=== PATIENT | female | born 1965 | race Caucasian/White ===

== ENCOUNTER → 2018-10-02 | Outpatient (CLI) | payer BC ==
[2018-10-02 15:43] LABS: Appearance,Urine Clear (Clear); Bilirubin,Urine Negative (Negative); Blood,Urine Negative (Negative); Color,Urine Yellow; Glucose,Urine (UA) Negative (Negative); Ketones,Urine Negative (Negative); Leukocyte Esterase,Urine Negative (Negative); Nitrite,Urine Negative (Negative); PH, Urine 6.5 (5.0-8.0); Protein,Urine Negative (Negative); Specific Gravity,Urine 1.019 (1.001-1.035); Urobilinogen,Urine <2.0 mg/dL (<2.0)
[2018-10-02 15:44] LABS: Basophils % (A) 0 %; Eosinophils # (A) 0.1 k/uL (0-0.7); Eosinophils % (A) 1 %; HCT 45.3 % (34.0-46.0); HGB 14.4 gm/dL (11.4-16.0); Lymphocytes # (A) 1.3 k/uL (1.0-4.8); Lymphocytes % (A) 19 %; MCH 31.7 pg (25.0-35.0); MCHC 31.7 g/dL (31.0-37.0); MCV 99.8 fL (80.0-100.0); Mean Platelet Volume 7.8; Monocytes # (A) 0.3 k/uL (0-1.0); Monocytes % (A) 5 %; Neutrophils # (A) 5.1 k/uL (1.3-7.7); Neutrophils % (A) 74 %; Platelet Count 197 k/uL (150-450); RBC 4.54 m/uL (3.80-5.40); RDW 12.7 % (11.5-15.5)
[2018-10-02 15:51] LABS: Partial Thromboplastin Time 23.1 sec (22.0-30.0); Prothrombin Time 10.4 sec (9.0-12.0)
--- NOTE | 2018-10-02 17:36 | XR ---
EXAMINATION TYPE: XR chest 2V DATE OF EXAM: 10/02/2018 COMPARISON: NONE TECHNIQUE: PA and lateral views submitted. HISTORY: Presurgical FINDINGS: The lungs are clear and there is no pneumothorax, pleural effusion, or focal pneumonia. Degenerativ e change of the spine noted. Hyperinflation suggests COPD or asthma, correlate clinically. IMPRESSION: 1. No acute process.
[2018-10-05 09:40] LABS: Anion Gap 10 mmol/L; Blood Urea Nitrogen 19 mg/dL (7-17); Carbon Dioxide 26 mmol/L (22-30); Chloride 110 mmol/L (98-107); Glucose 98 mg/dL (74-99); Potassium 4.3 mmol/L (3.5-5.1); Sodium 146 mmol/L (137-145)
[2018-10-05 09:41] LABS: Calcium 9.7 mg/dL (8.4-10.2)
== END | disposition home or self-care (01) ==
LOC: LABPAT 14:56
PROVIDERS: ATTEND Orthopaedic Surgery Orthopaedic Surgery of the Spine
DX: Z01.818 Encounter for other preprocedural examination (principal); S32.049A Unspecified fracture of fourth lumbar vertebra, initial encounter for closed fracture
CPT/HCPCS: 36415; 71046; 80048; 81003; 85025; 85610; 85730; 93005

== ENCOUNTER 2018-10-05 11:58 | Day surgery (SDC) | payer BC ==
[2018-10-05 12:44] VITALS: BMI 22.8
[2018-10-05] MEDS ORDERED: LACTATED RINGERS 1,000 ML IV ONE ×2 (12:49→15:56)
[2018-10-05] MEDS ORDERED: SODIUM CHLORIDE 0.9% IRRIGATIO 1,000 ML IRRIGATION ONE (13:15)
[2018-10-05] MEDS ORDERED: ceFAZolin IN SWFI 2 GM/20 ML SYRINGE IVP ONE (13:15)
[2018-10-05] MEDS ORDERED: MIDAZOLAM 2 MG/2 ML VIAL IV ONE (13:48)
[2018-10-05] MEDS ORDERED: SUCCINYLCHOLINE CHLORIDE 100 MG/5 ML SYR IV ONE (15:15)
[2018-10-05] MEDS ORDERED: PROPOFOL 10 MG/ML 20 ML VIAL IV ONE (15:15)
[2018-10-05] MEDS ORDERED: MIDAZOLAM 2 MG/2 ML VIAL ONE (15:15)
[2018-10-05] MEDS ORDERED: KETOROLAC 30 MG/ML 1 ML VIAL ONE (15:15)
[2018-10-05] MEDS ORDERED: fentaNYL (PF) 50 MCG/ML 2 ML AMP ONE (15:15)
[2018-10-05] MEDS ORDERED: LIDOCAINE 1% INJ 10MG/ML (20 ML MDV) ONE (15:15)
[2018-10-05] MEDS ORDERED: ePHEDrine SULFATE/0.9% NACL/PF 50 MG/5 ML SYRINGE IV ONE (15:15)
[2018-10-05] MEDS ORDERED: ROPIVACAINE 5 MG/ML 30 ML VIAL MISCELLANE ONE ×2 (15:40→15:49)
[2018-10-05] MEDS ORDERED: IOPAMIDOL M200 10 ML VIAL MISCELLANE ONE (15:51)
[2018-10-05] MEDS ORDERED: KETOROLAC 30 MG/ML 1 ML VIAL IVP PRN (16:19)
[2018-10-05] MEDS ORDERED: ONDANSETRON 4 MG/2 ML VIAL IVP PRN (16:19)
[2018-10-05] MEDS ORDERED: HYDROmorphone 0.5 MG/0.5 ML SYRINGE IVP PRN (16:19)
[2018-10-05] MEDS ORDERED: IBUPROFEN 600 MG TAB PO PRN (16:19)
[2018-10-05] MEDS ORDERED: HYDROcodone/APAP 5-325MG 1 EACH TAB PO PRN (16:19)
[2018-10-05] MEDS ORDERED: BENZOCAINE/MENTHOL LOZENG 1 EACH LOZENGE MUCOUS MEM PRN (16:19)
[2018-10-05] MEDS ORDERED: traMADol 50 MG TAB PO PRN (16:20)
--- NOTE | 2018-10-05 16:26 | P.OP ---
Date of Procedure: 10/05/18 Preoperative Diagnosis: Acute traumatic L4 vertebral compression fracture, low back pain Postoperative Diagnosis: Same Anesthesia: GETA Pathology: other (L4 vertebral body biopsy sent to pathology) Condition: stable Disposition: PACU Description of Procedure: BRIEF OPERATIVE NOTE Preoperative Diagnosis: Vertebral compression fracture of L4, acute traumatic Postoperative Diagnosis: Same Procedure: Kyphoplasty of L4 Vertebral body biopsy of L4 Use of biplanar fluoroscopic guidance Surgeon: Dr. Marin Process Control Technician: Chente Jaimes is present throughout the entire the case persistence during positioning, dissection, exposure, visualization, and all crucial elements of the case as well as closure. Anesthesia: General anesthesia Estimated blood loss: Less than 10 mL Specimen: Vertebral body biopsy of L4 sent to pathology in formalin Complications: None apparent Components implanted: Bone cement approximate 6 to have cc Disposition: To recovery room in good stable condition. OPERATIVE INDICATIONS The patient has been having issues in their back ever since sustaining an injury. She fell in the parking lot when leaving work onto her backside and had sudden acute pain at her lower back. She is having acute pain which is unrelenting for her and causing her great difficulty with any sort of mobilization and activity. She was able unable to work due to her pain and her injury. The patient has been through conservative treatment. She is not able to tolerate bracing for her back and was not doing well with medications. They attempted conservative care with bracing however they're not having any benefit despite brace use. They continue to have significant pain and debility due to their fracture at L4. We discussed various treatment options including surgery , and the patient wishes to proceed with surgery We discussed the risk, patient' s alternatives and benefits of surgery including but not limited to, risk of bleeding risk of infection, risk of need for further surgery, risk of decreased , loss of motion, loss of function, cement extravasation, nerve damage, paralysis, heart attack, blindness and . OPERATIVE SUMMARY After discussing all the risks, patient alternatives and benefits at length, the patient elected to proceed with surgical intervention, signed informed consent, and presented for their procedure. The patient was seen and examined in the preoperative holding area and the surgical site was marked. The patient was given antibiotics and brought to the operating room. The patient was sedated and intubated by anesthesia in standard fashion. The patient was positioned on to the operating room table in a prone position on the appropriate well-padded and well molded bilateral chest rolls. We were careful to pad any bony prominences and pressure points. We were careful to maintain the patient's cervical spine and good neutral alignment and position throughout. We used 2 C-arm machines to establish biplanar fluoroscopic guidance in AP and lateral positions. We were able to localize the fractures appropriately at L4. The patient was prepped and draped in a normal standard fashion. An appropriate timeout and keystone protocol performed. We were able to proceed with the surgery. The local wound area was infiltrated with local anesthetic. An incision was made over the lateral aspect of the pedicle over the appropriate levels with a small 2 mm stab incision on the left of L4. Intraoperative fluoroscopy was taken which showed a marker at the appropriate level at L4. With the appropriate level positively confirmed, I was able to position a sharp trocar over the lateral aspect of the pedicle. As able to advance the trocar into the pedicle and into the posterior aspect of vertebral body being careful to avoid penetration cephalad caudad or medially. The trocar was placed appropriately into the posterior aspect of vertebral body at the appropriate levels. This was confirmed with C-arm guidance. With the trocar intact I was then able to take a bone biopsy with a biopsy punch. The biopsy specimen was passed off to be sent to pathology in formalin. I was then able to place the kyphoplasty balloon within the vertebral body. The position was checked on C-arm. I was able to inflate the balloon under low pressure and visualization with C-arm. The balloon was well enclosed within the vertebral body. There is no leakage of any of the contrast within the balloon. The cement was prepared. With the cement at appropriate working condition the balloons were deflated and removed. I was able to place bony cement with trocar with the cement delivery device under low pressure. It had good fill within the vertebral body. There is no evidence of any extravasation of the cement posteriorly toward the canal. The cement was well contained at the appropriate levels of L4. Some small amount of cement went through the fracture site into the disc at L3 4 without issue. The cement was allowed to cure appropriately. The trochars removed and final images were taken on C-arm. This showed the cement at the appropriate level of L4 Johnnie 6 and half cc of cement. We were able to proceed with closure. The wound was cleaned and dried and dressed with the appropriate dressing. The drapes were broken down. The patient was gently rolled back onto their hospital bed being careful to maintain their cervical spine and good neutral alignment and position. They were woken up by anesthesia, extubated, and brought to the recovery room in good stable condition. The patient will be admitted to the hospital for observation if necessary versus going home when stable from postanesthesia care unit and for appropriate postoperative care, medical management and monitoring. We will continue to follow them closely about the postoperative course.
[2018-10-05] MEDS ORDERED: SODIUM CHLORIDE 0.9% 1,000 ML IV SCH (16:30)
[2018-10-05 16:36] VITALS: TEMP 97.8
[2018-10-05] MEDS ORDERED: ONDANSETRON 4 MG/2 ML VIAL IVP ONE (16:42)
[2018-10-05] MEDS ORDERED: HYDROmorphone 1 MG/ML 1 ML SYRINGE IVP ONE (16:44)
[2018-10-05 17:05] VITALS: RESP 18
[2018-10-05 17:14] VITALS: BP 153/87; PULSE 74
[2018-10-05] MEDS ORDERED: CLINDAMYCIN 900 MG in DEXTROSE 5% IN WATER 50 ML IVPB SCH ×2 (18:00)
--- NOTE | 2018-10-05 22:24 | FL ---
EXAMINATION TYPE: FL guidance operating room, XR lumbar spine 1V DATE OF EXAM: 10/05/2018 CLINICAL HISTORY: Compression fracture. TECHNIQUE: Fluoroscopy. Intraoperative single view lumbar spine. COMPARISON: None. FINDINGS: Fluoroscopic guidance was provided during kyphoplasty procedure performed by Dr. Marin. A total of 60 seconds of fluoroscopic time was utilized during the procedure and 3 spot fluoroscopic i mages are acquired. Images acquired show placement of device and cement material injection L4 level extending into adjace nt L3-L4 disc space. IMPRESSION: As Above.
[2018-10-06] MEDS ORDERED: LISINOPRIL 20 MG TAB PO SCH (09:00)
[2018-10-06] MEDS ORDERED: FLUTICASONE 50MCG/SPRAY NASAL 16GM EA NOSTRIL SCH (09:00)
[2018-10-06] MEDS ORDERED: METOPROLOL SUCCINATE (ER) 50 MG TAB.ER.24H PO SCH (09:00)
== END 2018-10-05 18:03 | disposition home or self-care (01) ==
LOC: OR 11:58
PROVIDERS: ATTEND Orthopaedic Surgery Orthopaedic Surgery of the Spine
DX: S32.040A Wedge compression fracture of fourth lumbar vertebra, initial encounter for closed fracture (principal); W19.XXXA Unspecified fall, initial encounter; Y92.481 Parking lot as the place of occurrence of the external cause; Z88.6 Allergy status to analgesic agent; Z91.041 Radiographic dye allergy status; I10 Essential (primary) hypertension; Z79.899 Other long term (current) drug therapy; Z88.1 Allergy status to other antibiotic agents
CPT/HCPCS: 88307; 88311; 72020; 22514; C1713; J2250; J2405; J2001; J3010; J1885; J1170; J2795; J0330; J2704; J0690; Q9966

== ENCOUNTER 2022-06-05 20:01 | Emergency (ER) | payer BC, MEDICAID, OTHER ==
[2022-06-05 20:06] VITALS: BP 142/92; PULSE 78; RESP 18; TEMP 98.1
--- NOTE | 2022-06-05 21:01 | XR ---
EXAMINATION TYPE: XR ribs bilat w pa chest xray DATE OF EXAM: 06/05/2022 COMPARISON: NONE HISTORY: Rib pain TECHNIQUE: 9 views FINDINGS: Heart is normal. Lungs are clear of infiltrate. No evidence of rib fracture. No pleural eff usion or pneumothorax. The shoulder joints appear intact IMPRESSION: Normal chest. Normal bilateral rib exam.
[2022-06-05] MEDS ORDERED: ORPHENADRINE 30 MG/ML 2 ML VIAL IM STA (21:37)
[2022-06-05] MEDS ORDERED: KETOROLAC 15 MG/ML 1 ML VIAL IM STA (21:37)
[2022-06-05] MEDS ORDERED: DEXAMETHASONE SOD PHOSPHATE 10 MG/ML 1 ML VIAL IM STA (21:37)
--- NOTE | 2022-06-05 21:52 | ED ---
General Adult HPI - General Chief complaint: Back Pain/Injury Stated complaint: Back pain Time Seen by Provider: 06/05/22 20:51 Source: patient Mode of arrival: ambulatory Limitations: no limitations - History of Present Illness Initial comments: Patient is a 57-year-old female presenting with chief complaint of thoracic back pain. Pain is been ongoing since patient's recent chiropractor visit, states that he was pressing down between her shoulder blades and she felt instant pain wraparound the chest. Patient states she returned and saw her regular chiropractor, they said that she "had a rib out of place" and adjusted her, patient was continuing to experience pain. Patient is admitting to tenderness and pain with range of motion to the right side of the chest as well as to the lateral portion of the chest and near the scapula. Patient has been taking Motrin with no relief. She denies any numbness, tingling, weakness, difficulty breathing, palpitations. - Related Data Home Medications Medication Instructions Recorded Confirmed Fluticasone Nasal [place] [Flonase 1 spray EA NOSTRIL DAILY 10/05/18 10/05/18 Nasal [place]] Metoprolol Succinate [Toprol XL] 1 tab PO DAILY 10/05/18 10/05/18 lisinopriL 20 mg PO DAILY 10/05/18 10/05/18 Previous Rx's Medication Instructions Recorded traMADol HCL [Ultram] 50 mg PO Q4HR PRN 3 Days #18 tab 10/05/18 Cyclobenzaprine [Flexeril] 10 mg PO TID PRN #20 tab 06/05/22 methylPREDNISolone Dose Pack 4 mg PO DIRECTED #1 packet 06/05/22 [Medrol Dose Pack] Allergies Allergy/AdvReac Type Severity Reaction Status Date / Time aspirin Allergy Rash/Hives Verified 06/05/22 20:06 Penicillins Allergy Rash/Hives Verified 06/05/22 20:06 MRI CONTRAST Allergy Rash/Hives Uncoded 06/05/22 20:06 IVP DYE AdvReac Itching Uncoded 06/05/22 20:06 Review of Systems ROS Statement: Those systems with pertinent positive or pertinent negative responses have been documented in the HPI. ROS Other: All systems not noted in ROS Statement are negative. Past Medical History Past Medical History: Hypertension History of Any Multi-Drug Resistant Organisms: None Reported Past Surgical History: Tonsillectomy, Tubal Ligation Past Anesthesia/Blood Transfusion Reactions: No Reported Reaction Past Psychological History: No Psychological Hx Reported Smoking Status: Never smoker Past Alcohol Use History: None Reported Past Drug Use History: None Reported General Exam Limitations: no limitations General appearance: alert, in no apparent distress Head exam: Present: atraumatic, normocephalic, normal inspection Eye exam: Present: normal appearance, PERRL, EOMI. Absent: scleral icterus, conjunctival injection, periorbital swelling Neck exam: Present: normal inspection Respiratory exam: Present: chest wall tenderness Back exam: Present: normal inspection, paraspinal tenderness. Absent: vertebral tenderness Neurological exam: Present: alert, oriented X3, CN II-XII intact Psychiatric exam: Present: normal affect, normal mood Skin exam: Present: warm, dry, intact, normal color. Absent: rash Course Vital Signs 06/05/22 20:04 Temperature 98.1 F Pulse Rate 78 Respiratory 18 Rate Blood Pressure 142/92 O2 Sat by Pulse 97 Oximetry Medical Decision Making - Medical Decision Making Patient is a 57-year-old female presenting with chief complaint of rib pain. Pain is been ongoing for several days, started after a chiropractor visit. On examination there is tenderness to palpation. X-ray shows no acute process. Patient is responsive to pain medication. Patient is discharged with muscle relaxers and steroid. Follow-up with PCP. Report back to ER with any new or worsening symptoms. Discussed return parameters and answered all questions. Patient conveyed verbal understanding and agreed to the plan. I discussed this case in detail with my attending Dr. Simms Disposition Clinical Impression: Mechanical back pain, Thoracic back pain Disposition: HOME SELF-CARE Condition: Good Instructions (If sedation given, give patient instructions): Back Pain (ED) Additional Instructions: Follow-up with PCP. Report back to ER with any new or worsening symptoms. Take medication as prescribed. Do not take cyclobenzaprine and prior to driving or operating heavy machinery as it may cause drowsiness. Prescriptions: Cyclobenzaprine [Flexeril] 10 mg PO TID PRN #20 tab PRN Reason: Spasms methylPREDNISolone Dose Pack [Medrol Dose Pack] 4 mg PO DIRECTED #1 packet Is patient prescribed a controlled substance at d/c from ED?: No Referrals: Namita Pemberton FNPBC [Primary Care Provider] - 1-2 days Time of Disposition: 22:30
[2022-06-05] MEDS ORDERED: HYDROcodone/APAP 7.5-325MG 1 EACH TAB PO ONE (22:28)
[2022-06-05] MEDS ORDERED: ACET/COD 300 MG/30 MG STARTER PACK 6 TAB BTL PO STA (22:30)
== END 2022-06-05 22:58 | disposition home or self-care (01) ==
LOC: EC 20:01
DX: M54.6 Pain in thoracic spine (principal); I10 Essential (primary) hypertension; Z88.6 Allergy status to analgesic agent; Z91.041 Radiographic dye allergy status; Z88.0 Allergy status to penicillin; Z79.82 Long term (current) use of aspirin
CPT/HCPCS: 71111; 99283; 96372 ×3; J1100; J2360; J1885

== ENCOUNTER 2022-07-25 08:59 | Emergency (ER) | payer MEDICAID ==
[2022-07-25 09:06] VITALS: RESP 18; TEMP 98
--- NOTE | 2022-07-25 09:31 | ED ---
Lower Extremity Injury HPI - General Chief Complaint: Extremity Injury, Lower Stated Complaint: Foot Injury Time Seen by Provider: 07/25/22 09:11 Source: patient, RN notes reviewed Mode of arrival: ambulatory Limitations: no limitations - History of Present Illness Initial Comments: This a 57-year-old female presents emergency Department with chief complaint of right foot injury. 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 No paresthesias. She has increasing pain when she steps on her rolled her foot on the lateral aspect. Patient denies any paresthesias denies any associated complaints.. - Related Data Home Medications Medication Instructions Recorded Confirmed Fluticasone Nasal [place] [Flonase 1 spray EA NOSTRIL DAILY 10/05/18 10/05/18 Nasal [place]] Metoprolol Succinate [Toprol XL] 1 tab PO DAILY 10/05/18 10/05/18 lisinopriL 20 mg PO DAILY 10/05/18 10/05/18 Previous Rx's Medication Instructions Recorded traMADol HCL [Ultram] 50 mg PO Q4HR PRN 3 Days #18 tab 10/05/18 Cyclobenzaprine [Flexeril] 10 mg PO TID PRN #20 tab 06/05/22 methylPREDNISolone Dose Pack 4 mg PO DIRECTED #1 packet 06/05/22 [Medrol Dose Pack] Allergies Allergy/AdvReac Type Severity Reaction Status Date / Time aspirin Allergy Rash/Hives Verified 07/25/22 09:06 Penicillins Allergy Rash/Hives Verified 07/25/22 09:06 MRI CONTRAST Allergy Rash/Hives Uncoded 07/25/22 09:06 IVP DYE AdvReac Itching Uncoded 07/25/22 09:06 Review of Systems ROS Statement: Those systems with pertinent positive or pertinent negative responses have been documented in the HPI. ROS Other: All systems not noted in ROS Statement are negative. Past Medical History Past Medical History: No Reported History, Hypertension History of Any Multi-Drug Resistant Organisms: None Reported Past Surgical History: Tonsillectomy, Tubal Ligation Past Anesthesia/Blood Transfusion Reactions: No Reported Reaction Past Psychological History: No Psychological Hx Reported Smoking Status: Never smoker Past Alcohol Use History: None Reported Past Drug Use History: None Reported General Exam Limitations: no limitations General appearance: alert, in no apparent distress Head exam: Present: atraumatic, normocephalic, normal inspection Eye exam: Present: normal appearance, PERRL, EOMI. Absent: scleral icterus, conjunctival injection, periorbital swelling ENT exam: Present: normal exam, normal oropharynx, mucous membranes moist, TM's normal bilaterally Neck exam: Present: normal inspection, full ROM. Absent: tenderness, meningismus, lymphadenopathy Respiratory exam: Present: normal lung sounds bilaterally. Absent: respiratory distress, wheezes, rales, rhonchi, stridor Cardiovascular Exam: Present: regular rate, normal rhythm, normal heart sounds. Absent: systolic murmur, diastolic murmur, rubs, gallop, clicks Extremities exam: Present: other (Right foot over the fifth metatarsal there is tenderness, no obvious deformity mild swelling neurovascular intact no malleoli tenderness no proximal tib-fib tenderness.) Neurological exam: Present: alert, reflexes normal. Absent: motor sensory deficit Course Vital Signs 07/25/22 09:03 Temperature 98 F Pulse Rate 69 Respiratory 18 Rate Blood Pressure 145/89 O2 Sat by Pulse 98 Oximetry Medical Decision Making - Medical Decision Making X-ray interpreted by me no acute fracture. Patient has right foot sprain will be discharged in stable condition we did discuss if no improvement that repeat x-rays follow-up possible bone scan return parameters discussed. Disposition Clinical Impression: Right foot sprain Disposition: HOME SELF-CARE Condition: Stable Instructions (If sedation given, give patient instructions): Foot Sprain (ED) Additional Instructions: Please return to the Emergency Department if symptoms worsen or any other concerns. Is patient prescribed a controlled substance at d/c from ED?: No Referrals: Nonstaff,Physician [Primary Care Provider] - 1-2 days Augusto Rebolledo MD [Medical Doctor] - 1-2 days Time of Disposition: 10:17
--- NOTE | 2022-07-25 10:02 | XR ---
EXAMINATION TYPE: XR foot complete RT DATE OF EXAM: 07/25/2022 COMPARISON: None HISTORY: Lateral foot pain TECHNIQUE: 3 view right foot FINDINGS: No acute fracture or dislocation is evident. Soft tissues are normal. Joint spaces are pres erved. Plantar calcaneal heel spurs present. On the AP view there is some subtle cortical disruption of the distal interphalangeal joint space dig it. This is not identified on additional images. Correlate with location of patient's pain. IMPRESSION: 1. No acute osseous abnormality radiographically apparent. An occult fracture of the distal phalanx fifth digit could be considered at the joint space. Correlate with location of patient's pain.
[2022-07-25] MEDS ORDERED: ACET/COD 300 MG/30 MG STARTER PACK 6 TAB BTL PO STA (10:15)
[2022-07-25] MEDS ORDERED: KETOROLAC 15 MG/ML 1 ML VIAL IM STA (10:15)
[2022-07-25 10:33] VITALS: BP 126/78; PULSE 80
== END 2022-07-25 10:33 | disposition home or self-care (01) ==
LOC: EC 08:59
DX: S93.601A Unspecified sprain of right foot, initial encounter (principal); I10 Essential (primary) hypertension; Z79.899 Other long term (current) drug therapy; Z88.6 Allergy status to analgesic agent; Z88.0 Allergy status to penicillin; Z91.041 Radiographic dye allergy status; X58.XXXA Exposure to other specified factors, initial encounter
CPT/HCPCS: 73630; 99283; 96372; J1885

== ENCOUNTER 2023-01-31 13:31 | Emergency (ER) | payer MEDICAID ==
[2023-01-31 14:04] VITALS: RESP 16
[2023-01-31] MEDS ORDERED: KETOROLAC 15 MG/ML 1 ML VIAL IM STA (14:35)
[2023-01-31] MEDS ORDERED: LIDOCAINE 5% PATCH TOPICAL STA (14:35)
--- NOTE | 2023-01-31 14:46 | ED ---
General Adult HPI - General Chief complaint: Extremity Injury, Lower Stated complaint: R Knee Injury Time Seen by Provider: 01/31/23 14:10 Source: patient, RN notes reviewed Mode of arrival: wheelchair Limitations: no limitations - History of Present Illness Initial comments: 57-year-old female presents emergency department chief complaining of right knee pain 1 day. Patient states that she was working on shed yesterday when she twisted while carrying a box and felt a sudden sharp pain in her right knee. She states the pain is worse with walking and rotation. She states that she has been taking Motrin for the pain along with icing and applying a knee sleeve. She reports that the knee sleeve is semi-helpful. She does report that she is able to walk on it. Denies erythema to the area, fever, chills. - Related Data Home Medications Medication Instructions Recorded Confirmed Fluticasone Nasal [place] [Flonase 1 spray EA NOSTRIL DAILY 10/05/18 10/05/18 Nasal [place]] Metoprolol Succinate [Toprol XL] 1 tab PO DAILY 10/05/18 10/05/18 lisinopriL 20 mg PO DAILY 10/05/18 10/05/18 Previous Rx's Medication Instructions Recorded traMADol HCL [Ultram] 50 mg PO Q4HR PRN 3 Days #18 tab 10/05/18 Cyclobenzaprine [Flexeril] 10 mg PO TID PRN #20 tab 06/05/22 methylPREDNISolone Dose Pack 4 mg PO DIRECTED #1 packet 06/05/22 [Medrol Dose Pack] Allergies Allergy/AdvReac Type Severity Reaction Status Date / Time aspirin Allergy Rash/Hives Verified 01/31/23 14:04 Penicillins Allergy Rash/Hives Verified 01/31/23 14:04 MRI CONTRAST Allergy Rash/Hives Uncoded 01/31/23 14:04 IVP DYE AdvReac Itching Uncoded 01/31/23 14:04 Review of Systems ROS Statement: Those systems with pertinent positive or pertinent negative responses have been documented in the HPI. ROS Other: All systems not noted in ROS Statement are negative. Past Medical History Past Medical History: Hypertension History of Any Multi-Drug Resistant Organisms: None Reported Past Surgical History: Tonsillectomy, Tubal Ligation Past Anesthesia/Blood Transfusion Reactions: No Reported Reaction Past Psychological History: No Psychological Hx Reported Smoking Status: Never smoker Past Alcohol Use History: None Reported Past Drug Use History: None Reported General Exam Limitations: no limitations General appearance: alert, in no apparent distress Head exam: Present: atraumatic, normocephalic, normal inspection Eye exam: Present: normal appearance, PERRL, EOMI. Absent: scleral icterus, conjunctival injection, periorbital swelling ENT exam: Present: normal exam, mucous membranes moist Neck exam: Present: normal inspection. Absent: tenderness, meningismus, lymphadenopathy Respiratory exam: Present: normal lung sounds bilaterally. Absent: respiratory distress, wheezes, rales, rhonchi, stridor Cardiovascular Exam: Present: regular rate, normal rhythm, normal heart sounds. Absent: systolic murmur, diastolic murmur, rubs, gallop, clicks GI/Abdominal exam: Present: soft, normal bowel sounds. Absent: distended, tenderness, guarding, rebound, rigid Extremities exam: Present: full ROM, tenderness (anterior knee ), normal capillary refill, other (DP and PT pulses 2+). Absent: pedal edema, joint swelling, calf tenderness Back exam: Present: normal inspection Neurological exam: Present: alert, oriented X3 Psychiatric exam: Present: normal affect, normal mood Skin exam: Present: warm, dry, intact, normal color. Absent: rash Course Vital Signs 01/31/23 01/31/23 14:00 16:25 Temperature 97.9 F 97.4 F L Pulse Rate 69 76 Respiratory 16 16 Rate Blood Pressure 156/85 142/68 O2 Sat by Pulse 96 99 Oximetry Medical Decision Making - Medical Decision Making Was pt. sent in by a medical professional or institution (, PA, MVA REACTOR OPERATOR, urgent care, hospital, or correction...) When possible be specific @ -No Did you speak to anyone other than the patient for history (EMS, parent, family, police, friend...)? What history was obtained from this source @ -No Did you review nursing and triage notes (agree or disagree)? Why? @ -I reviewed and agree with nursing and triage notes Were old charts reviewed (outside hosp., previous admission, EMS record, old EKG, old radiological studies, urgent care reports/EKG's, correction records)? Report findings @ -No old charts were reviewed Differential Diagnosis (chest pain, altered mental status, abdominal pain women, abdominal pain men, vaginal bleeding, weakness, fever, dyspnea, syncope, headache, dizziness, GI bleed, back pain, seizure, CVA, palpatations, mental health, musculoskeletal)? @ -Differential Musculoskeletal Muscular strain, contusion, ligament sprain, fracture, arthritis, septic arthritis, bursitis, cellulitis, muscle spasm, nerve compression, DVT, arterial occlusion, herpes zoster, electrolyte abnormality, tumor.... This is not meant to be in all inclusive list EKG interpreted by me (3pts min.). @ -None X-rays interpreted by me (1pt min.). @ -X-ray of the right knee showed mild osteoarthritis with no acute fracture CT interpreted by me (1pt min.). @ -None done U/S interpreted by me (1pt. min.). @ -None done What testing was considered but not performed or refused? (CT, X-rays, U/S, labs)? Why? @ -None What meds were considered but not given or refused? Why? @ -None Did you discuss the management of the patient with other professionals (professionals i.e. , PA, MVA REACTOR OPERATOR, lab, RT, psych nurse, social work job titles, electrician bus, teacher, network security officer, case management coordinator)? Give summary @ -No Was smoking cessation discussed for >3mins.? @ -No Was critical care preformed (if so, how long)? @ -No Were there social determinants of health that impacted care today? How? (Homelessness, low income, unemployed, alcoholism, drug addiction, transportation, low edu. Level, literacy, decrease access to med. care, shelter, rehab)? @ -No Was there de-escalation of care discussed even if they declined (Discuss DNR or withdrawal of care, Hospice)? DNR status @ -No What co-morbidities impacted this encounter? (DM, HTN, Smoking, COPD, CAD, Cancer, CVA, ARF, Chemo, Hep., AIDS, mental health diagnosis, sleep apnea, morbid obesity)? @ -None Was patient admitted / discharged? Hospital course, mention meds given and route, prescriptions, significant lab abnormalities, going to OR and other pertinent info. @ -Discharged. Patient presented to emergency department chief complaint of anterior right knee pain following a twisting injury. X-ray of the right knee showed no evidence for acute fracture, mild osteoarthritis. She was given a Toradol shot and lidocaine patch for pain which she say mildly improved her pain. Patients knee was wrapped with Avi bandage. Patient given Tylenol 3 starter pack for pain and advised to continue Motrin. Advised to follow-up with her primary care provider. Patient discharged in stable condition. Case discussed my attending, Dr. Mendoza Undiagnosed new problem with uncertain prognosis? @ -No Drug Therapy requiring intensive monitoring for toxicity (Heparin, Nitro, Insulin, Cardizem)? @ -No Were any procedures done? @ -No Diagnosis/symptom? @ -Right knee injury Acute, or Chronic, or Acute on Chronic? @ -Acute Uncomplicated (without systemic symptoms) or Complicated (systemic symptoms)? @ -Uncomplicated Side effects of treatment? @ -No Exacerbation, Progression, or Severe Exacerbation? @ -No Poses a threat to life or bodily function? How? (Chest pain, [place], [place], pneumonia, PE, COPD, DKA, ARF, appy, cholecystitis, CVA, Diverticulitis, Homicidal, Suicidal, threat to staff... and all critical care pts) @ -No Disposition Clinical Impression: Knee contusion Disposition: HOME SELF-CARE Condition: Stable Instructions (If sedation given, give patient instructions): Knee Sprain (ED) Additional Instructions: Follow up with your primary care provider. Please return to the emergency department for new or worsening symptoms. Is patient prescribed a controlled substance at d/c from ED?: No Referrals: Efrain Santana MD [Primary Care Provider] - 1-2 days Time of Disposition: 17:05
--- NOTE | 2023-01-31 14:56 | XR ---
EXAMINATION TYPE: XR knee complete RT DATE OF EXAM: 01/31/2023 COMPARISON: NONE HISTORY: Pain TECHNIQUE: Three views are submitted. FINDINGS: Diffuse osteopenia with narrowing of the medial compartment of the knee joint and a tiny spur.. Osse ous structures are intact. No acute fracture seen. IMPRESSION: 1. No acute fracture or dislocation. Diffuse osteopenia with mild osteoarthritis.
[2023-01-31] MEDS ORDERED: ACET/COD 300 MG/30 MG STARTER PACK 6 TAB BTL PO STA (16:06)
[2023-01-31 16:27] VITALS: BP 142/68; PULSE 76; TEMP 97.4
== END 2023-01-31 16:02 | disposition home or self-care (01) ==
LOC: EC 13:31
DX: S80.01XA Contusion of right knee, initial encounter (principal); I10 Essential (primary) hypertension; Z79.899 Other long term (current) drug therapy; Z88.6 Allergy status to analgesic agent; Z88.0 Allergy status to penicillin; Z91.041 Radiographic dye allergy status; Z88.8 Allergy status to other drugs, medicaments and biological substances; X50.0XXA Overexertion from strenuous movement or load, initial encounter
CPT/HCPCS: 73562; 99283; 96372; J1885

== ENCOUNTER 2023-05-15 10:27 | Day surgery (SDC) | payer OTHER ==
[~2023-05-15 10:27] MED LIST: DEXAMETHASONE SOD PHOSPHATE 4 MG/ML 1 ML VIAL IV ONE; HYDROmorphone 0.5 MG/0.5 ML SYRINGE IVP PRN; LACTATED RINGERS 1,000 ML IV SCH; LIDOCAINE 1% (10MG/ML) FOR IV START INTRADERMA PRN; ONDANSETRON 4 MG/2 ML VIAL IVP ONE; Pre Op ABX Message 1 EACH MISC MISCELLANE ONE
[2023-05-15] MEDS ORDERED: BUPIVACAINE (PF) 0.5% 30 ML VIAL SQ ONE ×2 (12:09→13:02)
[2023-05-15] MEDS ORDERED: ePHEDrine 50 MG/ML 1 ML VIAL ONE (12:15)
[2023-05-15] MEDS ORDERED: PROPOFOL 10 MG/ML 20 ML VIAL IV ONE (12:15)
[2023-05-15] MEDS ORDERED: ceFAZolin 1,000 MG VIAL ONE (12:15)
[2023-05-15] MEDS ORDERED: SODIUM CHLORIDE 0.9% 100 ML BAG ONE (12:15)
[2023-05-15] MEDS ORDERED: fentaNYL (PF) 50 MCG/ML 2 ML AMP ONE (12:15)
[2023-05-15] MEDS ORDERED: WATER FOR INJECTION, STERILE 10 ML VIAL IV ONE (12:15)
[2023-05-15] MEDS ORDERED: LIDOCAINE 1% INJ 10MG/ML (20 ML MDV) ONE (12:15)
[2023-05-15] MEDS ORDERED: SODIUM CHLORIDE 0.9% 100 ML with ceFAZolin 2,000 MG IV ONE ×2 (12:18)
[2023-05-15 13:36] VITALS: TEMP 97.6
[2023-05-15] MEDS ORDERED: LACTATED RINGERS 1,000 ML IV ONE (14:05)
[2023-05-15 14:37] VITALS: RESP 16
[2023-05-15] MEDS ORDERED: HYDROcodone/APAP 5-325MG 1 EACH TAB PO ONE (14:49)
[2023-05-15 14:50] VITALS: BP 136/82; PULSE 72
--- NOTE | 2023-05-26 17:12 | P.OP ---
Date of Procedure: 05/26/23 Preoperative Diagnosis: 1. Right knee medial meniscus tear 2. Right knee osteoarthritis Postoperative Diagnosis: Same Procedure(s) Performed: Right knee arthroscopy with partial medial meniscectomy Anesthesia: YON Surgeon: Augusto Rebolledo Estimated Blood Loss (ml): 5 Pathology: none sent Condition: stable Disposition: PACU Indications for Procedure: The patient is a very pleasant recent healthy 58-year-old female that I been seen in the office for bilateral knee pain. She had x-rays and an MRI on the right knee which showed mild degenerative changes and a small degenerative medial meniscus tear. She responded transiently to a diagnostic corticosteroid injection. She continued to have joint line tenderness as well as mechanical symptoms. She ultimately requested proceeding with surgical intervention in the form of arthroscopy. I had a long discussion with her on the procedure, its potential risks and limitations. She understands that arthroscopy of the knee is very effective at treating meniscus pathology but is not very effective at treating arthritic pain. We both agreed that the majority of her symptoms seem to be a treatable to her meniscus tear but it's possible that her pain is coming from arthritis. She understands the potential for continued pain if this is the case. She has realistic expectations. We discussed potential risks and Occasions of surgery at length including but certainly not limited to risks from anesthesia, superficial infection, deep infection, delayed wound healing, damage to blood vessels or nerves, re-tear of the meniscus, progression of arthritis, avascular necrosis, iatrogenic joint damage, damage to ligamentous structures, DVT, PE, continued or worsened pain, need for further surgery including total joint replacement, and inability to regain preinjury level of function, and possibly loss of life or limb. She voiced her understanding of all these are the most common complications that there are other less common complications possible. She provided both her verbal and written consent to go forward with surgery. Operative Findings: There is a complex degenerative tear in the medial meniscus and partial thickness cartilage loss in the medial and patellofemoral compartments Description of Procedure: The patient was identified in preoperative holding and the correct right leg was marked with my initials. I reviewed the consent form with the patient and her daughter at length. The patient was then brought back to the operating room by anesthesia. She was assisted on the or table where general anesthetic and preoperative antibiotics were given. A tourniquet was applied to the proximal aspect of the right leg. The leg was then positioned in a well leg watters. The contralateral leg had a pillow placed under the knee and the foot of the table was dropped. The right leg was then prepped and draped in the standard sterile fashion. Prior to starting surgery timeout was performed identifying the correct patient, operative extremity, and procedure. The patient's leg was then elevated, exsanguinated with an Esmarch bandage, and the tourniquet was inflated to 250 mmHg. I began by marking out the standard anatomy on the anterior aspect of the knee including the inferior pole of the patella, medial and lateral borders the patellar tendon, and the tibial tubercle. Standard anteromedial and anterolateral portals were marked out. The anterolateral portal was created through a stab incision and the arthroscope was placed up into the superior patellar pouch. The arthroscope was withdrawn slightly and on inspection there was partial-thickness cartilage loss both on the undersurface the patella and in the trochlea. The arthroscope was and carefully brought down to the medial gutter into the medial compartment. Once the scope was in the medial compartment a spinal needle was placed through the marking over the anteromedial portal to confirm its location and trajectory. The portal was then made with a stab incision using a scalpel. A blunt probe was placed into the medial compartment. On inspection of the medial meniscus there was a complex degenerative type tear involving the middle third of the body extending into the posterior horn. This was then contoured with a combination of a straight biter and arthroscopic shaver. The blunt probe was placed back into the knee and the meniscus was probed and felt to be stable. On inspection of the medial femoral condyle there was partial-thickness cartilage loss. There was softening of the tibial plateau medially. The arthroscope and blunt probe were then placed in the notch and the ACL was probed and found to be intact. The leg was then placed in the figure 4 position both the arthroscope and the probe replaced and the lateral compartment. The cartilage was intact and there is no evidence of meniscus tear. The arthroscope was then brought up into the super patellar pouch and down the lateral gutter into the popliteal hiatus. Both the arthroscope and the arthroscopic shaver were then placed in the subpatellar pouch and sterile saline was lavaged through the joint. Inflow was turned off and I attempted to remove as much fluid as possible. Both portals were closed. Local anesthetic was infiltrated along the portal sites. A sterile dressing was applied. I verified that all instrument, sponge, and sharp counts were correct. The patient was then transferred off the OR table to a rracine and brought to recovery having tolerated the procedure well. Plan: The patient is going to discharge home as an outpatient. She can weight- bear as tolerated with the assistance of crutches or a walker. She will leave her surgical dressing on for 48 hours after surgery. After 48 hours she can remove her dressing. He is okay to get her incisions wet in the shower but she should not soak them. Once she is done showering she should pat them dry with a clean towel covered them with Band-Aids. Given her preoperative risk stratification she'll be treated with aspirin for DVT prophylaxis. She was given a prescription for oral narcotic pain medications and a stool softener. She'll need follow-up in the office in 2 weeks for wound check.
== END 2023-05-15 15:35 | disposition home or self-care (01) ==
LOC: OR 10:27
PROVIDERS: ATTEND Orthopaedic Surgery
DX: S83.241A Other tear of medial meniscus, current injury, right knee, initial encounter (principal); M17.11 Unilateral primary osteoarthritis, right knee; I10 Essential (primary) hypertension; Z90.89 Acquired absence of other organs; Z98.891 History of uterine scar from previous surgery; Z98.51 Tubal ligation status; Z82.49 Family history of ischemic heart disease and other diseases of the circulatory system; Z79.899 Other long term (current) drug therapy; Z88.6 Allergy status to analgesic agent; Z91.041 Radiographic dye allergy status; X58.XXXA Exposure to other specified factors, initial encounter
CPT/HCPCS: 29881; J1100; J2405; J0690; J2001; J3010; J2704; J0665

== ENCOUNTER 2024-03-07 20:11 | Emergency (ER) | payer OTHER ==
[2024-03-07 20:15] VITALS: TEMP 97.4
--- NOTE | 2024-03-07 20:47 | ED ---
Lower Extremity Injury HPI - General Chief Complaint: Extremity Injury, Lower Stated Complaint: Fall/L Hip/Knee Pain Time Seen by Provider: 03/07/24 20:30 Source: patient, RN notes reviewed Mode of arrival: wheelchair Limitations: no limitations - History of Present Illness Initial Comments: Is a 59-year-old female presents emergency department chief complaint of left knee and left hip pain. Patient states that approximately and a half ago she was outside gardening when she twisted her left knee causing pain. Patient states that she has been wearing a brace at home to help with symptoms, however today she felt a pulling sensation in her knee. Patient denies falls of the knee or hip. Patient's pain has been radiating from the left knee into the left hip. She denies any loss of bladder or bowel continence or saddle anesthesias. Patient does have an appointment scheduled with grain origination specialist in March for further evaluation. She is attempted to take Motrin at home with minimal relief. - Related Data Home Medications Medication Instructions Recorded Confirmed lisinopriL 20 mg PO BID 10/05/18 05/08/23 Levocetirizine Dihydrochloride 5 mg PO DAILY 05/08/23 05/08/23 [Xyzal] amLODIPine [Norvasc] 10 mg PO DAILY 05/08/23 05/08/23 carvediloL 12.5 mg PO BID 05/08/23 05/08/23 Previous Rx's Medication Instructions Recorded Aspirin 81 mg PO BID 30 Days #60 tab 05/15/23 Docusate [Colace] 100 mg PO BID #60 capsule 05/15/23 HYDROcodone/APAP 5-325MG [[place] 1 tab PO Q6HR PRN 7 Days #28 tab 05/15/23 5-325] Ondansetron Odt [Zofran Odt] 4 mg PO Q8HR PRN #10 tab 05/15/23 Allergies Allergy/AdvReac Type Severity Reaction Status Date / Time aspirin Allergy Rash/Hives Verified 03/07/24 20:15 Penicillins Allergy Rash/Hives Verified 03/07/24 20:15 IVP DYE Allergy Itching Uncoded 03/07/24 20:15 MRI CONTRAST Allergy Rash/Hives Uncoded 03/07/24 20:15 Review of Systems ROS Statement: Those systems with pertinent positive or pertinent negative responses have been documented in the HPI. ROS Other: All systems not noted in ROS Statement are negative. Past Medical History Past Medical History: Hypertension Additional Past Medical History / Comment(s): seasonal allergies, torn meniscus rt knee. recent uti - tx. vein ablation to bilateral legs- Dr Vásquez - wears compression stockings History of Any Multi-Drug Resistant Organisms: None Reported Past Surgical History: Adenoidectomy, Section, Tonsillectomy, Tubal Ligation Additional Past Surgical History / Comment(s): kyphoplasty, Past Anesthesia/Blood Transfusion Reactions: Postoperative Nausea & Vomiting (PO NV) Past Psychological History: No Psychological Hx Reported Smoking Status: Never smoker - Past Family History Mother Additional Family Medical History / Comment(s): General Exam Limitations: no limitations General appearance: alert, in no apparent distress Head exam: Present: atraumatic, normocephalic, normal inspection Eye exam: Present: normal appearance, PERRL, EOMI. Absent: scleral icterus, conjunctival injection, periorbital swelling ENT exam: Present: normal exam, mucous membranes moist Neck exam: Present: normal inspection. Absent: tenderness, meningismus, lymphadenopathy Respiratory exam: Present: normal lung sounds bilaterally. Absent: respiratory distress, wheezes, rales, rhonchi, stridor Cardiovascular Exam: Present: regular rate, normal rhythm, normal heart sounds. Absent: systolic murmur, diastolic murmur, rubs, gallop, clicks GI/Abdominal exam: Present: soft, normal bowel sounds. Absent: distended, tenderness, guarding, rebound, rigid Left Hip exam: Present: tenderness Knee exam: Present: normal inspection, tenderness (anterior). Absent: swelling, abrasion, laceration, ecchymosis, deformity Neurovascular tendon exam: Present: no vascular compromise. Absent: pulse deficit, motor deficit Gait: observed and limited by pain Back exam: Present: normal inspection Neurological exam: Present: alert, oriented X3, CN II-XII intact Psychiatric exam: Present: normal affect, normal mood Skin exam: Present: warm, dry, intact, normal color. Absent: rash Course Vital Signs 03/07/24 03/07/24 20:12 22:29 Temperature 97.4 F L Pulse Rate 94 70 Respiratory 18 16 Rate Blood Pressure 179/94 135/80 O2 Sat by Pulse 95 97 Oximetry Medical Decision Making - Medical Decision Making Was pt. sent in by a medical professional or institution (NAHUN Rueda, SUPERVISOR OF COMMUNICATIONS, urgent care, hospital, or penitentiary...) When possible be specific @ -No Did you speak to anyone other than the patient for history (EMS, parent, family, police, friend...)? What history was obtained from this source @ -No Did you review nursing and triage notes (agree or disagree)? Why? @ -I reviewed and agree with nursing and triage notes Were old charts reviewed (outside hosp., previous admission, EMS record, old EKG, old radiological studies, urgent care reports/EKG's, penitentiary records)? Report findings @ -No old charts were reviewed Differential Diagnosis (chest pain, altered mental status, abdominal pain women, abdominal pain men, vaginal bleeding, weakness, fever, dyspnea, syncope, headache, dizziness, GI bleed, back pain, seizure, CVA, palpatations, mental health, musculoskeletal)? @ -Differential Musculoskeletal Muscular strain, contusion, ligament sprain, fracture, arthritis, septic arthritis, bursitis, cellulitis, muscle spasm, nerve compression, DVT, arterial occlusion, herpes zoster, electrolyte abnormality, tumor.... This is not meant to be in all inclusive list EKG interpreted by me (3pts min.). @ -None X-rays interpreted by me (1pt min.). @ -XR left knee reveals no acute osseous pathology. XR of the left hip and AP pelvis reveals no acute process. CT interpreted by me (1pt min.). @ -None done U/S interpreted by me (1pt. min.). @ -None done What testing was considered but not performed or refused? (CT, X-rays, U/S, labs)? Why? @ -None What meds were considered but not given or refused? Why? @ -None Did you discuss the management of the patient with other professionals (professionals i.e. NAHUN Rueda, SUPERVISOR OF COMMUNICATIONS, lab, RT, psych nurse, social worker psychiatric, teacher music, teacher, head correction officer, housing case manager)? Give summary @ -No Was smoking cessation discussed for >3mins.? @ -No Was critical care preformed (if so, how long)? @ -No Were there social determinants of health that impacted care today? How? (Homelessness, low income, unemployed, alcoholism, drug addiction, transportation, low edu. Level, literacy, decrease access to med. care, residential, rehab)? @ -No Was there de-escalation of care discussed even if they declined (Discuss DNR or withdrawal of care, Hospice)? DNR status @ -No What co-morbidities impacted this encounter? (DM, HTN, Smoking, COPD, CAD, Cancer, CVA, ARF, Chemo, Hep., AIDS, mental health diagnosis, sleep apnea, morbid obesity)? @ -None Was patient admitted / discharged? Hospital course, mention meds given and route, prescriptions, significant lab abnormalities, going to OR and other pertinent info. @ -Discharge. 59-year-old female with left knee and left hip pain. There are no neurovascular deficits noted. Patient is able to bear weight with pain. She is provided with a dose of Toradol pending results of x-rays. X-rays are negative for acute process. Patient has established appointment with grain origination specialist for further evaluation and recommend that she keeps this appointment. Continue to rest, ice, elevate and use Tylenol Motrin as needed for symptomatic relief. All questions answered at bedside and strict return. The patient is a resident of [facility], [place]. Case discussed with Dr. Saab Undiagnosed new problem with uncertain prognosis? @ -No Drug Therapy requiring intensive monitoring for toxicity (Heparin, Nitro, Insulin, Cardizem)? @ -No Were any procedures done? @ -No Diagnosis/symptom? @ -Knee pain, left hip pain Acute, or Chronic, or Acute on Chronic? @ -Acute Uncomplicated (without systemic symptoms) or Complicated (systemic symptoms)? @ -uncomplicated Side effects of treatment? @ -No Exacerbation, Progression, or Severe Exacerbation? @ -No Poses a threat to life or bodily function? How? (Chest pain, [place], [place], pneumonia, PE, COPD, DKA, ARF, appy, cholecystitis, CVA, Diverticulitis, Homicidal, Suicidal, threat to staff... and all critical care pts) @ -No Disposition Clinical Impression: Left knee pain, Left hip pain Disposition: HOME SELF-CARE Condition: Good Instructions (If sedation given, give patient instructions): Knee Sprain (ED) Additional Instructions: Return to the emergency department for any new or worsening symptoms. Follow-up as scheduled with grain origination specialist for further evaluation. Is patient prescribed a controlled substance at d/c from ED?: No Referrals: Efrain Santana MD [Primary Care Provider] - 1-2 days Time of Disposition: 22:04
[2024-03-07] MEDS: KETOROLAC 15 MG/ML 1 ML VIAL IM STA (21:29)
--- NOTE | 2024-03-07 21:40 | XR ---
EXAMINATION TYPE: XR Hip LT and AP Pelvis DATE OF EXAM: 03/07/2024 9:00 PM CLINICAL INDICATION:Female, 59 years old with history of fall, pain; PHH. Initial encounter. COMPARISON: None. TECHNIQUE: XR Hip LT and AP Pelvis; hip was examined in the frontal and lateral projections and an AP pelvis. FINDINGS: No evidence for acute process, joint dislocation or significant soft tissue swelling. Incid ental note of phleboliths in the soft tissues of the pelvis and vertebroplasty cement in L4. IMPRESSION: No acute process.
--- NOTE | 2024-03-07 21:42 | XR ---
EXAMINATION TYPE: XR knee complete LT DATE OF EXAM: 03/07/2024 9:05 PM CLINICAL INDICATION:Female, 59 years old with history of fall, pain; PHH. Initial encounter. COMPARISON: None. TECHNIQUE: XR knee complete LT; examined in Frontal, lateral and oblique projections. FINDINGS: No evidence of any acute osseous pathology, soft tissue swelling, or joint effusion is no kevin. IMPRESSION: 1. No acute osseous pathology.
[2024-03-07 22:50] VITALS: BP 135/80; PULSE 70; RESP 16
== END 2024-03-07 22:29 | disposition home or self-care (01) ==
LOC: EC 20:11
DX: M25.562 Pain in left knee (principal); M25.552 Pain in left hip; Z88.0 Allergy status to penicillin; Z88.6 Allergy status to analgesic agent; Z91.041 Radiographic dye allergy status; X50.1XXA Overexertion from prolonged static or awkward postures, initial encounter
CPT/HCPCS: 73502; 73562; 99283; 96372; J1885